=== PATIENT | female | born 1945 | race Caucasian/White ===

== ENCOUNTER → 2017-01-27 | Outpatient (CLI) | payer OTHER ==
[2017-01-28 12:45] LABS: BLOOD UREA NITROGEN 14 mg/dL (7-22); CALCIUM 8.7 mg/dL (8.7-10.7); CHOL/HDL RATIO 3.27 RATIO (0-4.0); EST GLOMERULAR FILTRATION > 60 (>60 ml/min/1.73m(2)); HDL CHOLESTEROL 61 mg/dL (40-150); SERUM ALBUMIN 3.9 g/dL (3.5-4.8); SERUM CHOLESTEROL 200 mg/dL (120-200)
== END ==
LOC: LAB 09:22
DX: Z13.6 Encounter for screening for cardiovascular disorders (principal); J44.9 Chronic obstructive pulmonary disease, unspecified; F32.9 Major depressive disorder, single episode, unspecified; F41.9 Anxiety disorder, unspecified; F17.200 Nicotine dependence, unspecified, uncomplicated
CPT/HCPCS: 80053; 80061